=== PATIENT | male | born 1930 | race Caucasian/White ===

== ENCOUNTER 2017-12-04 19:42 | Inpatient (IN) | payer MEDICARE ==
[~2017-12-04] VITALS: Ht 190.5 cm; Wt 64.7 kg
[~2017-12-04 19:42] MED LIST: AC325T; DILT180C; LISI40TA; WRF2T
[2017-12-04] MEDS ORDERED: NS IV 1000 ML 1,000 ML IV SCH (20:01)
[2017-12-04] MEDS ORDERED: ACETAMINOPHEN 500 MG TAB (TYLENOL) PO PRN (20:15)
[2017-12-04] MEDS ORDERED: PIPERACILLIN/TAZOBACTAM 3.375 GM in NS (IVPB) 100 ML IV NR (20:15)
--- OUTSIDE RECORDS SUMMARY | 2017-12-04 20:29 | XMS REPORT ---
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 8321452132203 Problem Irregular heart rhythm I49.9 Active 237075677 Problem Congestive heart failure, unspecified congestive heart failure chronicity, unspecified congestive heart failure type I50.9 Active 86506522 Problem Atrial fibrillation, unspecified type I48.91 Active 15036218 ALLERGIES Substance Reaction Event Type Date Status Penicillins Unknown Non Drug Allergy Apr, Active ENCOUNTERS Encounter Location Date Diagnosis [place] [id number] [place] [address] September, Congestive heart failure, unspecified congestive heart failure chronicity, unspecified congestive heart failure type I50.9 ; Atrial fibrillation, unspecified type I48.91 and Dermatitis L30.9 [place] [address] [place] [address]39[address] May, Chronic kidney disease, unspecified CKD stage N18.9 [place] [id number], [place] [address] May, Chronic kidney disease, unspecified CKD stage N18.9 [place] [address] [place] [address] 00148- 5126 May, [place] [id number] [place] [address]- 7106 May, Congestive heart failure, unspecified congestive heart failure chronicity, unspecified congestive heart failure type I50.9 and 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 [facility] [address] [facility] [id number], [place] [address] Apr, [facility] [address] [id number], [place] [address] Apr, Irregular heart rhythm I49.9 ; Dyspnea on exertion R06.09 ; Atrial fibrillation, unspecified type I48.91 and Congestive heart failure, unspecified congestive heart failure chronicity, unspecified congestive heart failure type I50.9 [facility] [address] [id number], [place] [address] Apr, [facility] [address] [id number], [place] [address] Dec, [facility] [address], [place] [address] Aug, [facility] [address] [id number], [place] [address] Aug, [facility] [address], [place] [address] Jul, [facility] [address] [facility] [id number], [place] [address] Jul, [facility] [address], [place] [address] Jul, [facility] [address] [facility] [id number], [place] [address] Jul, [facility] [address] [facility] [id number], [place] [address] Jul, [facility] [address] [facility] [id number], [place] [address] 8[address] Oct, [facility] [address] [facility] [id number], [place] [address] Nov, [facility] [address] [facility] [id number], [place] [address] Nov, [facility] [address] [facility] [address] [id number], [place] [address] Nov, [facility] [address] [facility] [id number], [place] [address] Oct, IMMUNIZATIONS No Known Immunizations SOCIAL HISTORY Never Assessed REASON FOR VISIT shortness of breath for 2 weeks. worse with exertion. when hes resting...not so bad. [email or web address] PLAN OF CARE Activity Details Follow Up Hospice Reason: VITAL SIGNS Height 72 in 2017-05-16 Weight 152.4 lbs 2017-05-16 Temperature 97.1 degrees Fahrenheit 2017-05-16 Heart Rate 94 bpm 2017-05-16 Respiratory Rate 24 2017-05-16 BMI 20.67 kg/m2 2017-05-16 Blood pressure systolic 152 mmHg 2017-05-16 Blood pressure diastolic 90 mmHg 2017-05-16 MEDICATIONS Medication Instructions Dosage Frequency Start Date End Date Duration Status Blood Pressure Cuff Nov, Not-Taking Tylenol 325 mg take 1 Tablet by Oral route 1 per p Oct, Active Aspirin 325 MG Orally Once a day 1 tablet 24h Active Lisinopril-Hydrochlorothiazide 20-25 MG Orally Once a day 1 tablet 24h Jul, Not-Taking RESULTS Name Result Date Reference Range Xray : Chest (IN HOUSE) 2017-05-16 PROCEDURES Procedure Date Ordered Result Body Site EKG, TRACING (IN-HOUSE) 2017-05-16 Abnormal ELECTROCARDIOGRAM, TRACING May 16, 2017 [facility] VISIT ESTABLISHED PATIENT May 16, 2017 CHEST X-RAY May 16, 2017 INSTRUCTIONS MEDICATIONS ADMINISTERED No Known Medications MEDICAL (GENERAL) HISTORY Type Description Date Surgical History aortic valce replacement 2001 Surgical History bilateral knee replacements 2004, 2006 Hospitalization History post surgery 2001
--- OUTSIDE RECORDS SUMMARY | 2017-12-04 20:29 | XMS REPORT ---
Author Author MIGULEINA HOFFMAN Organization [facility] Address [address] [place] [address] Care Team Providers Care Milling General Superintendent Name Role Phone MIGUELINA HOFFMAN Unavailable PROBLEMS Type Condition ICD9-CM Code WPG13-PS Code Onset Dates Condition Status SNOMED Code Problem Chronic kidney disease, unspecified CKD stage N18.9 Active 254608652 Problem Coronary artery disease involving [place]well coronary artery of cantwell heart without angina pectoris I25.10 Active 4454022658471 Problem Irregular heart rhythm I49.9 Active 666595385 Problem Congestive heart failure, unspecified congestive heart failure chronicity, unspecified congestive heart failure type I50.9 Active 86940349 Problem Atrial fibrillation, unspecified type I48.91 Active 43449645 ALLERGIES No Information ENCOUNTERS Encounter Location Date Diagnosis [place] [id number] [place] [address] September, Congestive heart failure, unspecified congestive heart failure chronicity, unspecified congestive heart failure type I50.9 ; Atrial fibrillation, unspecified type I48.91 and Dermatitis L30.9 [place] [id number] [place] [address] 56116- 5996 May, Chronic kidney disease, unspecified CKD stage N18.9 [place] [id number] [place] [address]- 1549 May, Chronic kidney disease, unspecified CKD stage N18.9 [place] [id number] [place] [address]44- 6455 May, [place] [id number] [place] [address]15- 2025 May, Congestive heart failure, unspecified congestive heart failure chronicity, unspecified congestive heart failure type I50.9 and Coronary artery disease involving [place] coronary artery of cantwell heart without angina pectoris I25.10 [facility] [address] [address] Apr, [facility] [address] [address] Apr, Irregular heart rhythm I49.9 ; Dyspnea on exertion R06.09 ; Atrial fibrillation, unspecified type I48.91 and Congestive heart failure, unspecified congestive heart failure chronicity, unspecified congestive heart failure type I50.9 [facility] [address] [facility] [id number] [address] Apr, [facility] [id number] [place] [address] 87427- 9577 Dec, [facility] [id number] [address] 6[address] Aug, [facility] [id number] [address]- 0[address] Aug, [facility] [address] [address]- [address] Jul, [facility] [address] [address]- 0626 Jul, [facility] [address] [address]- 0126 Jul, [facility] [address] [address]- 6400 Jul, [facility] [id number] [address]- 1338 Jul, [facility] [address] [address] 4412 Oct, [facility] [address] [address]- 1464 Nov, [facility] [id number] [place] [address] 93508- 3173 Nov, [facility] [address] [facility] [id number] [place] [address]- 2546 Nov, [facility] [address] [facility] [id number] [place] [address]- 25[address] Oct, IMMUNIZATIONS No Known Immunizations SOCIAL HISTORY Never Assessed REASON FOR VISIT Lab (walk-in) PLAN OF CARE VITAL SIGNS MEDICATIONS No Known Medications RESULTS No Results PROCEDURES Procedure Date Ordered Result Body Site LAB NOT BILLED BY [facility] Jun 19, 2017 [place], ROUTINE* Jun 19, 2017 INSTRUCTIONS MEDICATIONS ADMINISTERED No Known Medications MEDICAL (GENERAL) HISTORY Type Description Date Surgical History aortic valce replacement 2001 Surgical History bilateral knee replacements 2004, 2005 Hospitalization History post surgery 2001
--- OUTSIDE RECORDS SUMMARY | 2017-12-04 20:29 | XMS REPORT ---
Author Author MIGUELINA HOFFMAN [facility] Address [address] [place] [address] Care Team Providers Care Reservoir Caretaker Name Role Phone MIGUELINA HOFFMAN Unavailable PROBLEMS Type Condition ICD9-CM Code [id number] Code Onset Dates Condition Status SNOMED Code Problem Chronic kidney disease, unspecified CKD stage N18.9 Active 162442129 Problem Coronary artery disease involving [place] coronary artery of [place] heart without angina pectoris I25.10 Active 6397883155164 Problem Irregular heart rhythm I49.9 Active 881738675 Problem Congestive heart failure, unspecified congestive heart failure chronicity, unspecified congestive heart failure type I50.9 Active 10429625 Problem Atrial fibrillation, unspecified type I48.91 Active 47117524 ALLERGIES Substance Reaction Event Type Date Status Penicillins Unknown Non Drug Allergy May, Active ENCOUNTERS Encounter Location Date Diagnosis [place] [id number] [place] [address]- [address]1 September, Congestive heart failure, unspecified congestive heart failure chronicity, unspecified congestive heart failure type I50.9 ; Atrial fibrillation, unspecified type I48.91 and Dermatitis L30.9 [place] [id number] [place] [address] 58958- [address]69 May, Chronic kidney disease, unspecified CKD stage N18.9 [facility] [id number] [place] [address] 38898- 9481 May, Chronic kidney disease, unspecified CKD stage N18.9 [facility] [address] [place] [address] 37262- 5007 May, [facility] [id number] [place] [address] 68646- 3346 May, Congestive heart failure, unspecified congestive heart failure chronicity, unspecified congestive heart failure type I50.9 and Coronary artery disease involving [place] coronary artery of emmon[place] heart without angina pectoris I25.10 [facility] [address] [facility] [id number] [address] Apr, [facility] [address] [facility] [id number], [place] [address] Apr, Irregular heart rhythm I49.9 ; Dyspnea on exertion R06.09 ; Atrial fibrillation, unspecified type I48.91 and Congestive heart failure, unspecified congestive heart failure chronicity, unspecified congestive heart failure type I50.9 [facility] [address] [id number], [place] [address]- [address]41 Apr, [facility] [address] [facility] [id number], [place] [address]- 1460 Dec, [facility] [address], [place] [address]- 7949 Aug, [facility] [address], [place] [address]- 9797 Aug, [facility] [address], [place] [address]- 9097 Jul, [facility] [address], [place] [address]- 3787 Jul, [facility] [address], [place] [address]- 5460 Jul, [facility] [address], [place] [address]- 3663 Jul, [facility] [address], [place] [address]- 6409 Jul, [facility] [address], [place] [address]- 9415 Oct, [facility] [address], [place] [address]- 4812 Nov, [facility] [address] [facility] [id number] [place] [address]- 0771 Nov, [facility] [address] [facility] [id number] [place] [address]- 0318 Nov, [facility] [address] [facility] [id number] [place] [address]- 8790 Oct, IMMUNIZATIONS No Known Immunizations SOCIAL HISTORY Never Assessed REASON FOR VISIT Walk in care f/u, PT was seen for trouble breathing and he says he was much better-Dawson LECHUGA PLAN OF CARE Activity Details Follow Up 6 Weeks Reason: VITAL SIGNS Height 72 in 2017-05-28 Weight 148.6 lbs 2017-05-28 Temperature 98.1 degrees Fahrenheit 2017-05-28 Heart Rate 72 bpm 2017-05-28 Respiratory Rate 20 2017-05-28 BMI 20.15 kg/m2 2017-05-28 Blood pressure systolic 144 mmHg 2017-05-28 Blood pressure diastolic 86 mmHg 2017-05-28 MEDICATIONS Medication Instructions Dosage Frequency Start Date End Date Duration Status Tylenol 325 mg take 1 Tablet by Oral route 1 per p Oct, Active Aspirin 325 MG Orally Once a day 1 tablet 24h Active Blood Pressure Cuff Nov, Not-Taking Lisinopril-Hydrochlorothiazide 20-25 MG Orally Once a day 1 tablet 24h Jul, Not-Taking Lasix 40 mg Orally Once a day 1 tablet 24h Apr, 30 days Active RESULTS No Results PROCEDURES Procedure Date Ordered Result Body Site LAB NOT BILLED BY [facility] May 28, 2017 [facility] VISIT ESTABLISHED PATIENT May 28, 2017 PEDRITO WILKERSON* May 28, 2017 INSTRUCTIONS MEDICATIONS ADMINISTERED No Known Medications MEDICAL (GENERAL) HISTORY Type Description Date Surgical History aortic valce replacement 2001 Surgical History bilateral knee replacements 2004, 2006 Hospitalization History post surgery 2001
--- OUTSIDE RECORDS SUMMARY | 2017-12-04 20:29 | XMS REPORT ---
Author Author MIGUELINA HOFFMAN Organization [facility] Address [address] [place] [address] Care Team Providers Care Jointer Submarine Cable Name Role Phone MIGUELINA HOFFMAN Unavailable PROBLEMS Type Condition ICD9-CM Code BIB34-TB Code Onset Dates Condition Status SNOMED Code Problem Chronic kidney disease, unspecified CKD stage N18.9 Active 517366106 Problem Coronary artery disease involving [place] coronary artery of [place] heart without angina pectoris I25.10 Active 4733660028203 Problem Irregular heart rhythm I49.9 Active 455322714 Problem Congestive heart failure, unspecified congestive heart failure chronicity, unspecified congestive heart failure type I50.9 Active 47276349 Problem Atrial fibrillation, unspecified type I48.91 Active 92360383 ALLERGIES No Information ENCOUNTERS Encounter Location Date Diagnosis [place] [id number] [place] [address]28- 8852 September, Congestive heart failure, unspecified congestive heart failure chronicity, unspecified congestive heart failure type I50.9 ; Atrial fibrillation, unspecified type I48.91 and Dermatitis L30.9 [place] [id number] [place] [address] 59166- 8297 May, Chronic kidney disease, unspecified CKD stage N18.9 [place] [id number] [place] [address] 26936- 8413 May, Chronic kidney disease, unspecified CKD stage N18.9 [place] [id number] [place] [address] 77123- 5402 May, [place] [id number] [place] [address] 40113- 0129 May, Congestive heart failure, unspecified congestive heart failure chronicity, unspecified congestive heart failure type I50.9 and Coronary artery disease involving [place] coronary artery of [place] heart without angina pectoris I25.10 [facility] [address] [address] Apr, [facility] [address] [address] Apr, Irregular heart rhythm I49.9 ; Dyspnea on exertion R06.09 ; Atrial fibrillation, unspecified type I48.91 and Congestive heart failure, unspecified congestive heart failure chronicity, unspecified congestive heart failure type I50.9 [facility] [address] [facility] [id number] [place] [address]- 8817 Apr, [facility] [id number] [place] [address] 48496- 1695 Dec, [facility] [address] [id number] [address]- 0702 Aug, [facility] [address] [id number] [address]- 7636 Aug, [facility] [address] [address]- 7677 Jul, [facility] [address] [address]- 4858 Jul, [facility] [address] [address] Jul, [facility] [address] [address]- 1598 Jul, [facility] [id number] [address]- 0538 Jul, [facility] [address] [address]- 2285 Oct, [facility] [address] [address]- 6126 Nov, [facility] [id number] [place] [address] 13485- 9454 Nov, [facility] [address] [facility] [id number] [place] [address]- 2546 Nov, [facility] [address] [facility] [id number] [place] [address]- 4846 Oct, IMMUNIZATIONS No Known Immunizations SOCIAL HISTORY Never Assessed REASON FOR VISIT PLAN OF CARE VITAL SIGNS MEDICATIONS No Known Medications RESULTS No Results PROCEDURES No Known procedures INSTRUCTIONS MEDICATIONS ADMINISTERED No Known Medications MEDICAL (GENERAL) HISTORY Type Description Date Surgical History aortic valce replacement 2001 Surgical History bilateral knee replacements 2004, 2005 Hospitalization History post surgery 2001
--- OUTSIDE RECORDS SUMMARY | 2017-12-04 20:29 | XMS REPORT ---
Author Author ADOLPH MAJANO [facility] Address [address] [place] [address] Care Team Providers Care Nursery Rn Name Role Phone ADOLPH MAJANO Unavailable PROBLEMS Type Condition ICD9-CM Code QRD07-DZ Code Onset Dates Condition Status SNOMED Code Problem Chronic kidney disease, unspecified CKD stage N18.9 Active 063642244 Problem 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 Active 7838316488704 Problem Irregular heart rhythm I49.9 Active 726849964 Problem Congestive heart failure, unspecified congestive heart failure chronicity, unspecified congestive heart failure type I50.9 Active 96061226 Problem Atrial fibrillation, unspecified type I48.91 Active 40085043 ALLERGIES No Information ENCOUNTERS Encounter Location Date Diagnosis [place] [id number] [place] [address] September, Congestive heart failure, unspecified congestive heart failure chronicity, unspecified congestive heart failure type I50.9 ; Atrial fibrillation, unspecified type I48.91 and Dermatitis L30.9 [place] [address] [place] [address] May, Chronic kidney disease, unspecified CKD stage N18.9 [place] [address] [place] [address]- 3937 May, Chronic kidney disease, unspecified CKD stage N18.9 [place] [id number] [place] [address]- [address] May, [place] [id number] [place] [address] 8859 May, Congestive heart failure, unspecified congestive heart failure chronicity, unspecified congestive heart failure type I50.9 and 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 [facility] [id number] [address] Apr, [facility] [address] [facility] [id number] [address] Apr, Irregular heart rhythm I49.9 ; Dyspnea on exertion R06.09 ; Atrial fibrillation, unspecified type I48.91 and Congestive heart failure, unspecified congestive heart failure chronicity, unspecified congestive heart failure type I50.9 [facility] [address] [facility] [id number], [place] [address] Apr, [facility] [address], [place] [address] Dec, [facility] [address], [place] [address] Aug, [facility] [address], [place] [address] Aug, [facility] [address] [address] Jul, [facility] [address], [place] [address] Jul, [facility] [address], [place] [address] Jul, [facility] [address], [place] [address] Jul, [facility] [id number], [place] [address] Jul, [facility] [address], [place] [address] Oct, [facility] [id number] [address] Nov, [facility] [address] [address] Nov, [facility] [address] [facility] [id number] [place] [address] Nov, [facility] [address] [facility] [id number] Oct, IMMUNIZATIONS No Known Immunizations SOCIAL HISTORY Never Assessed REASON FOR VISIT triage - CBowmanRN PLAN OF CARE VITAL SIGNS MEDICATIONS No Known Medications RESULTS No Results PROCEDURES No Known procedures INSTRUCTIONS MEDICATIONS ADMINISTERED No Known Medications MEDICAL (GENERAL) HISTORY Type Description Date Surgical History aortic valce replacement 2001 Surgical History bilateral knee replacements 2004, 2005 Hospitalization History post surgery 2001
--- OUTSIDE RECORDS SUMMARY | 2017-12-04 20:29 | XMS REPORT ---
Author Author MIGUELINA HOFFMAN Organization [facility] Address [address] [place] [address] Care Team Providers Care Attendant [employer] Name Role Phone MIGUELINA HOFFMAN Unavailable PROBLEMS Type Condition ICD9-CM Code JHI05-ZW Code Onset Dates Condition Status SNOMED Code Problem Chronic kidney disease, unspecified CKD stage N18.9 Active 182737532 Problem Coronary artery disease involving [place] coronary artery of [place] heart without angina pectoris I25.10 Active 5607984632561 Problem Irregular heart rhythm I49.9 Active 148821501 Problem Congestive heart failure, unspecified congestive heart failure chronicity, unspecified congestive heart failure type I50.9 Active 91253853 Problem Atrial fibrillation, unspecified type I48.91 Active 03992263 ALLERGIES No Information ENCOUNTERS Encounter Location Date Diagnosis [place] [id number] [place] [address] September, Congestive heart failure, unspecified congestive heart failure chronicity, unspecified congestive heart failure type I50.9 ; Atrial fibrillation, unspecified type I48.91 and Dermatitis L30.9 [place] [id number] [place] [address]- 8[address] May, Chronic kidney disease, unspecified CKD stage N18.9 [place] [id number] [place] [address]- 9669 May, Chronic kidney disease, unspecified CKD stage N18.9 [place] [id number] [place] [address] 93077- 9480 May, [place] [id number] [place] [address] 90944- 2452 May, Congestive heart failure, unspecified congestive heart failure chronicity, unspecified congestive heart failure type I50.9 and Coronary artery disease involving [place] coronary artery of [place] heart without angina pectoris I25.10 [facility] [address], [place] [address] Apr, [facility] [address], [place] [address] Apr, Irregular heart rhythm I49.9 ; Dyspnea on exertion R06.09 ; Atrial fibrillation, unspecified type I48.91 and Congestive heart failure, unspecified congestive heart failure chronicity, unspecified congestive heart failure type I50.9 [facility] [address] [facility] [id number], [place] [address] Apr, [facility] [address] [place] [address] 95936- 4664 Dec, [facility] [id number], [place] [address] Aug, [facility] [id number], [place] [address] Aug, [facility] [address], [place] [address] Jul, [facility] [address], [place] [address] 22[address] Jul, [facility] [address], [place] [address] 00[address] Jul, [facility] [address], [place] [address] Jul, [facility] [id number], [place] [address] Jul, [facility] [address], [place] [address] Oct, [facility] [address], [place] [address] 98[address] Nov, [facility] [address] [place] [address] 59615- 0662 Nov, [facility] [address] [facility] [id number] [place] [address] Nov, [facility] [address] [facility] [id number] [place] [address] 5166 Oct, IMMUNIZATIONS No Known Immunizations SOCIAL HISTORY Never Assessed REASON FOR VISIT hospice PLAN OF CARE VITAL SIGNS MEDICATIONS No Known Medications RESULTS No Results PROCEDURES No Known procedures INSTRUCTIONS MEDICATIONS ADMINISTERED No Known Medications MEDICAL (GENERAL) HISTORY Type Description Date Surgical History aortic valce replacement 2001 Surgical History bilateral knee replacements 2004, 2005 Hospitalization History post surgery 2001
--- OUTSIDE RECORDS SUMMARY | 2017-12-04 20:30 | XMS REPORT ---
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 Active 7676037482121 Problem Irregular heart rhythm I49.9 Active 552967472 Problem Congestive heart failure, unspecified congestive heart failure chronicity, unspecified congestive heart failure type I50.9 Active 02996466 Problem Atrial fibrillation, unspecified type I48.91 Active 02736329 ALLERGIES No Information ENCOUNTERS Encounter Location Date Diagnosis [place] [id number] [place] [address]1555- [address] September, Congestive heart failure, unspecified congestive heart failure chronicity, unspecified congestive heart failure type I50.9 ; Atrial fibrillation, unspecified type I48.91 and Dermatitis L30.9 [place] [id number] [place] [address] 89833- 7999 May, Chronic kidney disease, unspecified CKD stage N18.9 [place] [id number] [place] [address] 86932- 7376 May, Chronic kidney disease, unspecified CKD stage N18.9 [place] [id number] [place] [address] 84242- 2883 May, [place] [id number] [place] [address] 79930- 6649 May, Congestive heart failure, unspecified congestive heart failure chronicity, unspecified congestive heart failure type I50.9 and 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 [facility] [address] [address] Apr, [facility] [address] [address] Apr, Irregular heart rhythm I49.9 ; Dyspnea on exertion R06.09 ; Atrial fibrillation, unspecified type I48.91 and Congestive heart failure, unspecified congestive heart failure chronicity, unspecified congestive heart failure type I50.9 [facility] [address] [facility] [id number] [address]698 Apr, [facility] [address] [place] [address] 92376- 0954 Dec, [facility] [id number] [address] Aug, [facility] [id number] [address] Aug, [facility] [address] [address]- 70[address] Jul, [facility] [address] [address] 8821 Jul, [facility] [address] [address]- 0024 Jul, [facility] [address] [address]- 1357 Jul, [facility] [id number] [address]- 1700 Jul, [facility] [address] [address]- 1525 Oct, [facility] [address] [address]- 4472 Nov, [facility] [address] [place] [address]39- 9610 Nov, [facility] [address] [facility] [id number] [place] [address]- 2546 Nov, [facility] [address] [facility] [id number] [place] [address]- 2546 Oct, IMMUNIZATIONS No Known Immunizations SOCIAL HISTORY Never Assessed REASON FOR VISIT Hospice PLAN OF CARE VITAL SIGNS MEDICATIONS Medication Instructions Dosage Frequency Start Date End Date Duration Status Lasix 40 mg Orally Once a day 1 tablet 24h Apr, 15 days Active RESULTS No Results PROCEDURES No Known procedures INSTRUCTIONS MEDICATIONS ADMINISTERED No Known Medications MEDICAL (GENERAL) HISTORY Type Description Date Surgical History aortic valce replacement 2001 Surgical History bilateral knee replacements 2004, 2005 Hospitalization History post surgery 2001
--- OUTSIDE RECORDS SUMMARY | 2017-12-04 20:30 | XMS REPORT ---
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
--- OUTSIDE RECORDS SUMMARY | 2017-12-04 20:30 | XMS REPORT | Continuity of Care Document ---
Author Author [facility] Address Unknown Phone Unavailable Allergies Active Description Code Type Severity Reaction Onset Reported/Identified Relationship to Patient Clinical Status Yes Penicillins Drug Allergy N/A N/A 11/13/2011 Medications There is no data. Problems Date Dx Coded Attending Type Code Diagnosis Diagnosed By 11/13/2011 401.0 MALIGNANT ESSENTIAL HYPERTENSION 11/13/2011 V70.0 ROUTINE GENERAL MEDICAL EXAMINATION AT A HEALTH CARE FACILITY 11/13/2011 MIGUELINA HOFFMAN MD 401.0 MALIGNANT ESSENTIAL HYPERTENSION 11/13/2011 MIGUELINA HOFFMAN MD V70.0 ROUTINE GENERAL MEDICAL EXAMINATION AT A HEALTH CARE FACILITY 12/02/2011 272.1 HYPERTRIGLYCERIDEMIA 12/02/2011 MIGUELINA HOFFMAN MD 272.1 HYPERTRIGLYCERIDEMIA 08/10/2014 MIGUELINA HOFFMAN MD 396.9 MITRAL AND AORTIC VALVE DISEASES UNSPECIFIED 08/10/2014 MIGUELINA HOFFMAN MD 401.1 BENIGN ESSENTIAL HYPERTENSION 08/10/2014 MIGUELINA HOFFMAN MD 786.09 RESPIRATORY ABNORMALITY OTHER Procedures Code Description [place] [address] ROUTINE VENIPUNCTURE 08/10/2014 35490 CBC 08/10/2014 [id number] GFR CALC (RESULT ONLY) 08/10/2014 80787 CMP 08/10/2014 21515 BNP 08/11/2014 19123 OXIMETRY 08/15/2014 Results Test Result Range [facility] - 05/28/17 13:58 GLUCOSE 147 mg/dL 65-99 UREA NITROGEN (BUN) 44 mg/dL 7-25 CREATININE 1.12 mg/dL 0.70-1.11 eGFR NON-AFR. [place] 60 mL/min/1.73m2 > OR=60 eGFR 69 mL/min/1.73m2 > OR=60 BUN/CREATININE RATIO 39 (calc) 6-22 SODIUM 141 mmol/L 135-146 POTASSIUM 4.4 mmol/L 3.5-5.3 CHLORIDE 99 mmol/L 98-110 CARBON DIOXIDE 30 mmol/L 20-31 CALCIUM 10.0 mg/dL 8.6-10.3 PROTEIN, TOTAL 7.7 g/dL 6.1-8.1 ALBUMIN 4.1 g/dL 3.6-5.1 GLOBULIN 3.6 g/dL (calc) 1.9-3.7 ALBUMIN/GLOBULIN RATIO 1.1 (calc) 1.0-2.5 BILIRUBIN, TOTAL 0.7 mg/dL 0.2-1.2 ALKALINE PHOSPHATASE 141 U/L 40-115 AST 31 U/L 10-35 ALT 17 U/L 9-46 BMP - 06/19/17 10:55 GLUCOSE 155 mg/dL 65-99 UREA NITROGEN (BUN) 39 mg/dL 7-25 CREATININE 1.14 mg/dL 0.70-1.11 eGFR NON-AFR. [place] 58 mL/min/1.73m2 > OR=60 eGFR 68 mL/min/1.73m2 > OR=60 BUN/CREATININE RATIO 34 (calc) 6-22 SODIUM 140 mmol/L 135-146 POTASSIUM 4.8 mmol/L 3.5-5.3 CHLORIDE 102 mmol/L 98-110 CARBON DIOXIDE 28 mmol/L 20-31 CALCIUM 10.0 mg/dL 8.6-10.3 Encounters ACCT No. Visit Date/Time Discharge Status Pt. Type Provider Facility Loc./Unit Complaint [id number] 08/10/2014 14:44:00 08/10/2014 23:59:59 CLS Outpatient MIGUELINA HOFFMAN MD [id number] 11/30/2011 08:08:00 Document Registration [id number] 12/04/2017 19:00:00 ACT [facility] [id number] 06/19/2017 10:40:00 Document Registration [id number] 05/28/2017 13:20:00 Document Registration
[2017-12-04] MEDS ORDERED: VANCOMYCIN INJECTION 1,250 MG in NS (IVPB) 250 ML IV SCH (21:00)
[2017-12-04 21:02] LABS: BASOPHILS % (AUTO) 0 % (0-10); EOSINOPHILS % (AUTO) 0 % (0-10); HEMATOCRIT 31 % (40-54); HEMOGLOBIN 9.8 G/DL (13.3-17.7); LYMPHOCYTES # (AUTO) 0.9 X 10^3 (1.0-4.0); LYMPHOCYTES % (AUTO) 8 % (12-44); MEAN CORPUSCULAR HEMOGLOBIN 25 PG (25-34); MEAN CORPUSCULAR HGB CONC 32 G/DL (32-36); MEAN CORPUSCULAR VOLUME 78 FL (80-99); MEAN PLATELET VOLUME 10.2 FL (7.4-10.4); MONOCYTES # (AUTO) 0.8 X 10^3 (0.0-1.0); MONOCYTES % (AUTO) 7 % (0-12); NEUTROPHILS # (AUTO) 9.2 X 10^3 (1.8-7.8); NEUTROPHILS % (AUTO) 84 % (42-75); PLATELET COUNT 528 10^3/uL (130-400); RED BLOOD COUNT 3.94 10^6/uL (4.35-5.85); RED CELL DISTRIBUTION WIDTH 19.6 % (10.0-14.5); WHITE BLOOD COUNT 10.9 10^3/uL (4.3-11.0)
[2017-12-04] MEDS ORDERED: ASPI-808 PO (21:06)
[2017-12-04 21:22] LABS: ALANINE AMINOTRANSFERASE 34 U/L (0-55); ALKALINE PHOSPHATASE 278 U/L (40-136); BILIRUBIN,TOTAL 0.6 MG/DL (0.1-1.0); BUN/CREATININE RATIO 32; CALCIUM 10.6 MG/DL (8.5-10.1); CARBON DIOXIDE 22 MMOL/L (21-32); CHLORIDE 105 MMOL/L (98-107); CREATININE SERUM 1.09 MG/DL (0.60-1.30); GFR ESTIMATED > 60; GLUCOSE 131 MG/DL (70-105); SODIUM 139 MMOL/L (135-145); TOTAL PROTEIN 8.8 GM/DL (6.4-8.2)
--- NOTE | 2017-12-04 21:26 | Diagnostic Imaging Report ---
Clinical indication: Patient with right foot injury. Probed to bone. Exam: X-ray of the right foot, 3 views. Comparison: None. Findings: There is diffuse osteopenia which limits evaluation of fine bony detail. There is a soft tissue defect involving the plantar aspect of the foot near the MTP level. There are hypertrophic spurs involving the mid foot and also seen posteriorly which limits evaluation for subtle fracture. There is no radiodense foreign object seen. There is a curvilinear area overlying the region of the first MTP joint and a fracture fragment cannot be completely excluded. There is hypertrophic calcaneal spur at the plantar attachment. Vascular calcifications are seen. Impression: 1: There is a curvilinear area of increased density seen overlying the first MTP joint region which is in the general area of the soft tissue defect involving the medial plantar aspect of the foot. A fracture in this region cannot be completely excluded. CT scan of the right foot would better evaluate. 2: There is no other concern for acute fracture or dislocation. There is no radiodense foreign object seen. 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 Dictated by: Dictated on workstation # [id number]
[2017-12-04 21:41] LABS: TSH (THYROID ANALYZER) 3.37 UIU/ML (0.35-4.94)
[2017-12-05] MEDS ORDERED: NS IV 1000 ML 1,000 ML ONE (00:01)
[2017-12-05 00:26] VITALS: BP 159/76
[2017-12-05] MEDS: PIPERACILLIN/TAZO 3.375 GM/D5W 100 ML IV SCH ×6 (03:42→18:18)
[2017-12-05 03:43] LABS: BILIRUBIN,URINE NEGATIVE (NEGATIVE); CLARITY,URINE VERY CLOUDY; COLOR,URINE RED; GLUCOSE, URINE (UA) NEGATIVE (NEGATIVE); KETONES,URINE NEGATIVE (NEGATIVE); LEUKOCYTE ESTERASE ,URINE 3+ (NEGATIVE); NITRITE,URINE NEGATIVE (NEGATIVE); PH,URINE 6.5 (5-9); PROTEIN,URINE 3+ (NEGATIVE); UROBILINOGEN,URINE NORMAL (NORMAL)
[2017-12-05 03:52] LABS: BACTERIA,URINE TRACE /HPF; RBC,URINE >100 /HPF; SQUAMOUS EPITHELIAL CELL,UR RARE /HPF
[2017-12-05 04:36] VITALS: BP 150/82
[2017-12-05 05:47] LABS: BASOPHILS % (AUTO) 1 % (0-10); EOSINOPHILS # (AUTO) 0.1 10^3/uL (0.0-0.3); EOSINOPHILS % (AUTO) 1 % (0-10); HEMATOCRIT 27 % (40-54); HEMOGLOBIN 8.2 G/DL (13.3-17.7); LYMPHOCYTES # (AUTO) 0.9 X 10^3 (1.0-4.0); LYMPHOCYTES % (AUTO) 11 % (12-44); MEAN CORPUSCULAR HGB CONC 30 G/DL (32-36); MEAN CORPUSCULAR VOLUME 78 FL (80-99); MONOCYTES # (AUTO) 0.5 X 10^3 (0.0-1.0); MONOCYTES % (AUTO) 7 % (0-12); NEUTROPHILS # (AUTO) 6.5 X 10^3 (1.8-7.8); NEUTROPHILS % (AUTO) 81 % (42-75); PLATELET COUNT 476 10^3/uL (130-400); RED BLOOD COUNT 3.49 10^6/uL (4.35-5.85); RED CELL DISTRIBUTION WIDTH 19.7 % (10.0-14.5)
[2017-12-05 05:49] LABS: MEAN CORPUSCULAR HEMOGLOBIN 23 PG (25-34)
[2017-12-05 05:59] LABS: INR 1.5 (0.8-1.4)
[2017-12-05 06:12] LABS: ALANINE AMINOTRANSFERASE 25 U/L (0-55); ALBUMIN 3.2 GM/DL (3.2-4.5); ALKALINE PHOSPHATASE 219 U/L (40-136); BILIRUBIN,TOTAL 0.6 MG/DL (0.1-1.0); BUN/CREATININE RATIO 35; CALCIUM 9.5 MG/DL (8.5-10.1); CARBON DIOXIDE 20 MMOL/L (21-32); CHLORIDE 112 MMOL/L (98-107); CREATININE SERUM 0.84 MG/DL (0.60-1.30); GFR ESTIMATED > 60; GLUCOSE 98 MG/DL (70-105); POTASSIUM 4.5 MMOL/L (3.6-5.0); SODIUM 141 MMOL/L (135-145); TOTAL PROTEIN 6.9 GM/DL (6.4-8.2)
[2017-12-05 07:54] VITALS: BP 140/83
[2017-12-05] MEDS ORDERED: ACET325T49 PO (09:13)
--- NOTE | 2017-12-05 11:14 | Physical Therapy Evaluation ---
PT Evaluation-General Medical Diagnosis Admission Date Dec 04, 2017 at 20:18 Medical Diagnosis: right foot ulcer Onset Date: Dec 04, 2017 Therapy Diagnosis Therapy Diagnosis: debility/weakness Height/Weight Height (Feet): 6 Height (Inches): 3.00 Weight (Pounds): 142 Weight (Ounces): 11.2 Precautions Precautions/Isolations: Fall Prevention, Standard Precautions Weight Bear Status Right Lower Extremity: Right Weight Bearing/Tolerated Left Lower Extremity: Left Weight Bearing/Tolerated Referral Physician: Kiley Reason for Referral: Evaluation/Treatment Medical History Current History falls at home/per patient unremarkable history Reviewed History: Yes Social History Home: Single Level Current Living Status: Alone Entry Into Home: Ramp ambulates short distances only per patient report and "furniture walks" at home Prior/Core FIM Prior Level of Function Functional [place]acken Measure 0=Not Assessed/NA 4=Minimal Assistance 1=Total Assistance 5=Supervision or Setup 2=Maximal Assistance 6=Modified Bracken 3=Moderate Assistance 7=Complete [place]ack[place] Bed Mobility: 6 Transfers (B,C,W/C) (FIM): 6 Gait: 6 ambulates 20-25' "furniture walks" at home PT Evaluation-Current Subjective Patient agrees to PT. Pain Numeric Pain Scale: 0-No Pain Location: No Pain Reported Objective Patient Orientation: Normal For Age Problem Solving: Fair ROM/Strength ROM Lower Extremities bilateral LE WNL Strength Lower Extremities 4-/5 grossly bilateral LE Integumentary/Posture Integumentary noted right medial wound foot with foul smell Bowel Incontinence: No Bladder Incontinence: No Posture severe kyphosis Neuromuscular (Tone, Coordination, Reflexes) diminished coordination due to inactivity PLOF Sensory Vision: Functional Hearing: Functional Sensation Right Lower Extremit: Impaired Sensation Left Lower Extremity: Impaired Transfers Functional Bracken Measure 0=Not Assessed/NA 4=Minimal Assistance 1=Total Assistance 5=Supervision or Setup 2=Maximal Assistance 6=Modified [place] 3=Moderate Assistance 7=Complete [place] Transfers (B, C, W/C) (FIM): 5 Scootin Rollin Supine to/from Sit: 5 Sit to/from Stand: 5 Gait Mode of Locomotion: Walk Anticipated Mode of Locomotion: Walk Gait (FIM): 1 Distance (FIM): 1=up to 49 ft Distance: 20' x 2 Gait Level of Assist: 4 Gait Persons Needed: 1 Gait Assistive Device: FWW Comments/Gait Description CGA for safety with FWW use Balance Sitting Static: Fair Sitting Dynamic: Fair Standing Static: Fair Standing Dynamic: Fair Assessment/Needs 87 y.o. male, will benefit from skilled PT to address functional strength and mobility to improve current LOF and to safely return to home or care facility at maximum LOF. From a PT standpoint, patient may benefit from extended care facility to ensure safety and proper healing of right foot wound. Rehab Potential: Fair PT [employer] Account Executive Goals PT Usp Goals Time Frame: Dec 13, 2017 Transfers (B,C,W/C) (FIM): 6 Gait (FIM): 1 Gait distance (FIM): 1=up to 49 ft Distance: 25' Gait Level of Assist: 5 Gait Assistive Device: FWW PT Plan Problem List Problem List: Activity Tolerance, Functional Strength, Safety, Balance, Gait, Transfer, Bed Mobility Treatment/Plan Treatment Plan: Continue Plan of Care Treatment Plan: Bed Mobility, Education, Functional Activity Sandra, Functional Strength, Gait, Safety, Therapeutic Exercise, Transfers Treatment Duration: Dec 13, 2017 Frequency: 6 times per week Estimated Hrs Per Day: .25 hour per day Patient and/or Family Agrees t: Yes Discharge Recommendations Therapy D/C Recommendations: [facility] Placement, Penitentiary (TCU/[facility]) Time/GCodes Time In: 1050 Time Out: 1105 Total Billed Treatment Time: 15 Total Billed Treatment 1 visit EVMod 15 min G Codes Necessary: JOSE LUIS Pina PT Dec 05, 2017 11:14
--- NOTE | 2017-12-05 11:43 | History & Physicial (CHS) ---
XIN RAYGOZA MED STUDENT 12/05/17 11:43am: HPI History of Present Illness: Patient is an 87 year old male who was a direct admit from the urgent care for an ulcer on his right foot. He states that he has had the wound for about a month and it has become increasingly painful and finds it difficult to walk on it. He has been soaking the wound in [place] salt baths to try to help with no improvement. He lives at home by himself and has a caregiver and his caregiver was clipping his toe nails and saw the severity of the ulcer and made him seek medical attention for the ulcer. He denies fever and chills and denies any chronic medical issues. He states his only issue was that he had a porcine aortic valve replacement several years ago. Source: patient Exam Limitations: no limitations Date seen by provider: Dec 05, 2017 Time Seen by Provider: 10:00 Attending Physician Freddy Vargas MD PCP Miguelina Hoffman MD Consult Date of Admission Dec 04, 2017 at 20:18 Home Medications Home Medications Reviewed patient Home Medication Reconciliation performed by pharmacy medication reconciliations radiocommunications technician and/or nursing. Patients Allergies have been reviewed. Allergies Coded Allergies: Penicillins (Unverified Allergy, Mild, 04/07/09) TAL-Kqeone-Phveyb Hx Patient Social History Marrital Status: Alcohol Use: Denies Use Recreational Drug Use: No Smoking Status: Never a Smoker Recent Foreign Travel: No Contact w/other who traveled: No Recent Hopitalizations: No Recent Infectious Disease Expo: No Physical Abuse Screen: No Sexual Abuse: No Family Medical History Family History: Dysphasia FH: cancer 19 MOTHER FH: stomach cancer G8 SISTER FH: stroke G8 BROTHER Myocardial infarction 19 FATHER Review of Systems (CHC) Constitutional: No chills, No diaphoresis, No dizziness, No fever, No malaise, No weakness EENTM: No blurred vision, No double vision Respiratory: No cough, No dyspnea on exertion, No short of breath Cardiovascular: No chest pain, No edema, No palpitations Gastrointestinal: No abdominal pain, No constipation, No diarrhea, No nausea, No vomiting Genitourinary: No decreased output, No dysuria, No frequency, No hematuria, No hesitancy Musculoskeletal: other (Right foot pain) Skin: lesions (Ulcer on medial aspect of right foot) Psychiatric/Neurological: No Symptoms Reported; Denies Headache, Denies Numbness, Denies Tingling, Denies Weakness Physical Exam-([facility]) Physical Exam Vital Signs VS - Last 72 Hours, by Label 12/04/17 12/04/17 12/04/17 12/05/17 21:00 21:24 23:50 00:26 Temp 98.2 Pulse 80 84 Resp 20 B/P (MAP) 159/76 (103) Pulse Ox 98 O2 Delivery Room Air Nasal Cannula Nasal Cannula O2 Flow Rate 2.00 2.00 12/05/17 12/05/17 12/05/17 12/05/17 01:00 04:36 07:00 07:54 Temp 98.5 97.0 Pulse 75 79 114 79 Resp 16 18 B/P (MAP) 150/82 (104) 140/83 (102) Pulse Ox 99 95 O2 Delivery Nasal Cannula Nasal Cannula O2 Flow Rate 2.00 2.00 Capillary Refill : General Appearance: no apparent distress, thin HEENT: PERRL/EOMI, pharynx normal Neck: non-tender, full range of motion, normal inspection Respiratory: chest non-tender, lungs clear, normal breath sounds, no respiratory distress, no accessory muscle use Cardiovascular: regular rate, rhythm, no edema, no gallop, no JVD, no murmur Gastrointestinal: normal bowel sounds, non tender, soft, no organomegaly, no pulsatile mass Extremities: non-tender, normal inspection, no pedal edema, no calf tenderness Neurologic/Psychiatric: no motor/sensory deficits, alert, normal mood/affect, oriented x 3 Skin: normal color, warm/dry, other (ulcer located on right medial foot) Lymphatic: no adenopathy Assessment/Plan Assessment/Plan Admission Status: Inpatient Order (span 2 midnights) Reason for Inpatient Admission: Right foot ulcer. Needs IV abx Assessment & Plan Right Foot Ulcer - X Ray - MRI to look to see if the infection involves bone - If it involves bone will consider pic line to receive IV abx from a skilled facility or home health - IV Pip/tazo and IV Vancomycin - Dr. Solares will see patient and get a deep culture of the wound - Next steps will be determined after patient is seen by Dr. Solares. Clinical Quality Measures DVT/VTE Risk/Contraindication: Risk Factor Score Per Nursin RFS Level Per Nursing on Admit: 3=High Copy Copies To 1: MIGUELINA HOFFMAN MD,FREDDY Berg MD 12/05/17 5:17pm: HPI History of Present Illness: Reviewed History with patient and agree with student's documentation Home Medications Allergies Coded Allergies: Penicillins (Unverified Allergy, Mild, 04/07/09) CNA-Nebybz-Jqnbwy Hx Patient Social History Living Status: Lives home alone with dog Past Medical History Valve Replacement Family Medical History Family History: Dysphasia FH: cancer 19 MOTHER FH: stomach cancer G8 SISTER FH: stroke G8 BROTHER Myocardial infarction 19 FATHER Review of Systems (CHC) Respiratory: no symptoms reported Cardiovascular: no symptoms reported Gastrointestinal: no symptoms reported Musculoskeletal: other (Right foot pain) Skin: lesions (Ulcer on medial aspect of right foot) Psychiatric/Neurological: No Symptoms Reported Reviewed Test Results Reviewed Test Results Lab Laboratory Tests Test 12/04/17 20:40 12/04/17 20:50 12/05/17 02:30 12/05/17 05:36 Range/Units White Blood Count 10.9 8.0 4.3-11.0 10^3/uL Red Blood Count 3.94 L 3.49 L 4.35-5.85 10^6/uL Hemoglobin 9.8 L 8.2 L 13.3-17.7 G/DL Hematocrit 31 L 27 L 40-54 % Mean Corpuscular Volume 78 L 78 L 80-99 FL Mean Corpuscular Hemoglobin 25 23 L 25-34 PG Mean Corpuscular Hemoglobin Concent 32 30 L 32-36 G/DL Red Cell Distribution Width 19.6 H 19.7 H 10.0-14.5 % Platelet Count 528 H 476 H 130-400 10^3/uL Mean Platelet Volume 10.2 9.0 7.4-10.4 FL Neutrophils (%) (Auto) 84 H 81 H 42-75 % Lymphocytes (%) (Auto) 8 L 11 L 12-44 % Monocytes (%) (Auto) 7 7 0-12 % Eosinophils (%) (Auto) 0 1 0-10 % Basophils (%) (Auto) 0 1 0-10 % Neutrophils # (Auto) 9.2 H 6.5 1.8-7.8 X 10^3 Lymphocytes # (Auto) 0.9 L 0.9 L 1.0-4.0 X 10^3 Monocytes # (Auto) 0.8 0.5 0.0-1.0 X 10^3 Eosinophils # (Auto) 0.0 0.1 0.0-0.3 10^3/uL Basophils # (Auto) 0.0 0.0 0.0-0.1 10^3/uL Sodium Level 139 141 135-145 MMOL/L Potassium Level 5.0 4.5 3.6-5.0 MMOL/L Chloride Level 105 112 H 98-107 MMOL/L Carbon Dioxide Level 22 20 L 21-32 MMOL/L Anion Gap 12 9 5-14 MMOL/L Blood Urea Nitrogen 35 H 29 H 7-18 MG/DL Creatinine 1.09 0.84 0.60-1.30 MG/DL Estimat Glomerular Filtration Rate > 60 > 60 BUN/Creatinine Ratio 32 35 Glucose Level 131 H 98 70-105 MG/DL Calcium Level 10.6 H 9.5 8.5-10.1 MG/DL Total Bilirubin 0.6 0.6 0.1-1.0 MG/DL Aspartate Amino Transf (AST/SGOT) 53 H 33 5-34 U/L Alanine Aminotransferase (ALT/SGPT) 34 25 0-55 U/L Alkaline Phosphatase 278 H 219 H 40-136 U/L Total Protein 8.8 H 6.9 6.4-8.2 GM/DL Albumin 4.0 3.2 3.2-4.5 GM/DL TSH [place] Testing 3.37 0.35-4.94 UIU/ML Lactic Acid Level 0.98 0.50-2.00 MMOL/L Urine Color RED H Urine Clarity VERY CLOUDY H Urine pH 6.5 5-9 Urine Specific [place] 1.010 L 1.016-1.022 Urine Protein 3+ H NEGATIVE Urine Glucose (UA) NEGATIVE NEGATIVE Urine Ketones NEGATIVE NEGATIVE Urine Nitrite NEGATIVE NEGATIVE Urine Bilirubin NEGATIVE NEGATIVE Urine Urobilinogen NORMAL NORMAL MG/DL Urine Leukocyte Esterase 3+ H NEGATIVE Urine RBC (Auto) 5+ H NEGATIVE Urine RBC >100 H /HPF Urine WBC 5-10 H /HPF Urine Squamous Epithelial Cells RARE /HPF Urine Crystals NONE /LPF Urine Bacteria TRACE /HPF Urine Casts NONE /LPF Urine Mucus NEGATIVE /LPF Urine Culture Indicated YES Prothrombin Time 18.0 H 12.2-14.7 SEC INR Comment 1.5 H 0.8-1.4 Radiology Date of Exam: 12/04/17 FOOT, RIGHT, 3 VIEW Clinical indication: Patient with right foot injury. Probed to bone. Exam: X-ray of the right foot, 3 views. Comparison: None. Findings: There is diffuse osteopenia which limits evaluation of fine bony detail. There is a soft tissue defect involving the plantar aspect of the foot near the MTP level. There are hypertrophic spurs involving the mid foot and also seen posteriorly which limits evaluation for subtle fracture. There is no radiodense foreign object seen. There is a curvilinear area overlying the region of the first MTP joint and a fracture fragment cannot be completely excluded. There is hypertrophic calcaneal spur at the plantar attachment. Vascular calcifications are seen. Impression: 1: There is a curvilinear area of increased density seen overlying the first MTP joint region which is in the general area of the soft tissue defect involving the medial plantar aspect of the foot. A fracture in this region cannot be completely excluded. CT scan of the right foot would better evaluate. 2: There is no other concern for acute fracture or dislocation. There is no radiodense foreign object seen. 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 Physical Exam-([facility]) Physical Exam General Appearance: WD/WN, no apparent distress, thin HEENT: PERRL/EOMI Neck: non-tender, full range of motion, normal inspection Respiratory: chest non-tender, lungs clear, normal breath sounds, no respiratory distress, no accessory muscle use Cardiovascular: regular rate, rhythm, no edema, no murmur Peripheral Pulses: 1+ Femoral (R), 1+ Femoral (L); 0 Dorsalis Pedis (R), 0 Left Dors-Pedis (L) Gastrointestinal: normal bowel sounds, non tender, soft, no organomegaly Back: no CVA tenderness, no vertebral tenderness Extremities: non-tender, no pedal edema, no calf tenderness, slow capillary refill Neurologic/Psychiatric: solderer dipper II-XII nml as tested, alert, normal mood/affect, oriented x 3, sensory deficit (decrease senstation on feet bilaterally) Skin: other (ulcer located on right medial foot, necrotic with tunneling proximal) Lymphatic: no adenopathy Assessment/Plan Assessment/Plan Admission Status: Inpatient Order (span 2 midnights) Reason for Inpatient Admission: Requires IV antibiotics (1) Arterial insufficiency of lower extremity Status: Acute Assessment & Plan: - Dr Chapa following patient, arterial studies today with likely intervention (2) Open wound of right foot Status: Acute Assessment & Plan: - Dr Solares consulted and following along, patient will likely need surgical debridement - Vanc/Zosyn D2 - A1c pending (3) Microcytic anemia Status: Chronic Assessment & Plan: - Iron studies pending, will get Hemoccult study (4) Elevated LFTs Status: Acute Assessment & Plan: - Will follow as outpatient (5) Debility Status: Chronic Assessment & Plan: - Will likely need SNF placement after hospitalization for wound care and PT (6) Advanced age Status: Chronic XIN RAYGOZA MED STUDENT Dec 05, 2017 11:43 am FREDDY VARGAS MD Dec 05, 2017 5:17 pm
[2017-12-05] MEDS ORDERED: ACETAMINOPHEN 325 MG TABLET PO PRN (11:45)
[2017-12-05 12:00] VITALS: BP 162/82
--- NOTE | 2017-12-05 12:13 | Wound Care Assessment ---
Wound Care Assessment Date Seen by Provider: Dec 05, 2017 Time Seen by Provider: 11:30 Chief Complaint R foot ulcer. HPI The patient is a pleasant 87 year old male with a painful R medial foot ulcer, punched out, present for a month. There are no palpable pulses in the R foot. The wound has the appearance of an arterial lesion, arterial evaluation and consultation recommended. Smoking Status: Never a Smoker Recreational Drug Use: No Alcohol Use: Denies Use Review of Systems Pulmonary: No Dyspnea Cardiovascular: No: Chest Pain Exam Vital Signs Date Time Temp Pulse Resp B/P (MAP) Pulse Ox O2 Delivery O2 Flow Rate FiO2 12/05/17 07:54 97.0 79 18 140/83 (102) 95 Nasal Cannula 2.00 Capillary Refill : Cardiovascular: other (No palpable pedal pulses.) Skin: other (R maedial mid-foot -- 1.2 x .15 x 1.0 punched out with necrotic base, tunneling proximally and distally, with the overlying skin macerated and in places necrotic.) Results Laboratory Tests 12/04/17 20:40: White Blood Count 10.9, Red Blood Count 3.94L, Hemoglobin 9.8L, Hematocrit 31L, Mean Corpuscular Volume 78L, Mean Corpuscular Hemoglobin 25, Mean Corpuscular Hemoglobin Concent 32, Red Cell Distribution Width 19.6H, Platelet Count 528H, Mean Platelet Volume 10.2, Neutrophils (%) (Auto) 84H, Lymphocytes (%) (Auto) 8L , Monocytes (%) (Auto) 7, Eosinophils (%) (Auto) 0, Basophils (%) (Auto) 0, Neutrophils # (Auto) 9.2H, Lymphocytes # (Auto) 0.9L, Monocytes # (Auto) 0.8, Eosinophils # (Auto) 0.0, Basophils # (Auto) 0.0, Sodium Level 139, Potassium Level 5.0, Chloride Level 105, Carbon Dioxide Level 22, Anion Gap 12, Blood Urea Nitrogen 35H, Creatinine 1.09, Estimat Glomerular Filtration Rate > 60, BUN /Creatinine Ratio 32, Glucose Level 131H, Calcium Level 10.6H, Total Bilirubin 0.6, Aspartate Amino Transf (AST/SGOT) 53H, Alanine Aminotransferase (ALT/SGPT) 34, Alkaline Phosphatase 278H, Total Protein 8.8H, Albumin 4.0, TSH [place] Testing 3.37 7/18/18 20:50: Lactic Acid Level 0.98 12/05/17 02:30: Urine Color REDH, Urine Clarity VERY CLOUDYH, Urine pH 6.5, Urine Specific [place] 1.010L, Urine Protein 3+H, Urine Glucose (UA) NEGATIVE, Urine Ketones NEGATIVE, Urine Nitrite NEGATIVE, Urine Bilirubin NEGATIVE, Urine Urobilinogen NORMAL, Urine Leukocyte Esterase 3+H, Urine RBC (Auto) 5+H, Urine RBC >100H, Urine WBC 5-10H, Urine Squamous Epithelial Cells RARE, Urine Crystals NONE, Urine Bacteria TRACE, Urine Casts NONE, Urine Mucus NEGATIVE, Urine Culture Indicated YES 12/05/17 05:36: White Blood Count 8.0, Red Blood Count 3.49L, Hemoglobin 8.2L, Hematocrit 27L, Mean Corpuscular Volume 78L, Mean Corpuscular Hemoglobin 23L, Mean Corpuscular Hemoglobin Concent 30L, Red Cell Distribution Width 19.7H, Platelet Count 476H, Mean Platelet Volume 9.0, Neutrophils (%) (Auto) 81H, Lymphocytes (%) (Auto) 11L , Monocytes (%) (Auto) 7, Eosinophils (%) (Auto) 1, Basophils (%) (Auto) 1, Neutrophils # (Auto) 6.5, Lymphocytes # (Auto) 0.9L, Monocytes # (Auto) 0.5, Eosinophils # (Auto) 0.1, Basophils # (Auto) 0.0, Sodium Level 141, Potassium Level 4.5, Chloride Level 112H, Carbon Dioxide Level 20L, Anion Gap 9, Blood Urea Nitrogen 29H, Creatinine 0.84, Estimat Glomerular Filtration Rate > 60, BUN /Creatinine Ratio 35, Glucose Level 98, Calcium Level 9.5, Total Bilirubin 0.6, Aspartate Amino Transf (AST/SGOT) 33, Alanine Aminotransferase (ALT/SGPT) 25, Alkaline Phosphatase 219H, Total Protein 6.9, Albumin 3.2, Prothrombin Time 18.0H, INR Comment 1.5H Microbiology 12/05/17 Urine Culture - Preliminary, Resulted Sent To [facility] Microbiology 12/05/17 Urine Culture - Preliminary, Resulted Sent To [facility] Assessment/Plan/Dx 1. 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 2. Atherosclerotic peripheral vascular disease. Plan: Non-invasive arterial evaluation, pack with iodoform, vascular consultation. CHELSIE,NALLELY G MD Dec 05, 2017 12:13
--- NOTE | 2017-12-05 13:30 | Consultation-Cardiology ---
HPI-Cardiology Cardiology Consultation: Date of Consultation 12/05/17 Date of Admission Attending Physician Freddy Vargas MD Admitting Physician Jakob Su MD Consulting Physician Yadira CHAPA MD HPI: Time Seen by Provider: 12:30 Chief Complaint: Right lower extremity medial ulcer This is a 87-year-old gentleman with right foot medial ulcer. She denies history of diabetes or smoking. He does have an aortic valve replacement done in 2001. He denies any shortness of breath, chest pain. Review of Systems-Cardiology Review of Systems Constitutional: As described under HPI; No As described under HPI, No no symptoms reported, No chills, No fever, No lightheadedness Eyes: No As described under HPI, No no symptoms reported, No blindness, No blurred vision, No contact lenses, No drainage, No decreased acuity, No foreign body sensation, No pain, No vision change Ears/Nose/Throat: No As described under HPI, No no symptoms reported, No chronic hearing loss, No ear discharge, No ear pain, No nasal drainage, No ulcerations Respiratory: No no symptoms reported; As described under HPI; No As described under HPI, No cough, No orthopnea, No shortness of breath, No SOB with excertion Cardiovascular: No no symptoms reported; As described under HPI; No As described under HPI, No chest pain, No edema, No irregular heart rate, No lightheadedness, No palpitations Gastrointestinal: No no symptoms reported, No As described under HPI, No abdomen distended, No abdominal pain, No blood streaked bowels, No constipation , No diarrhea, No nausea, No vomiting, No stool coloration changes Genitourinary: No As described under HPI, No burning, No dysuria, No discharge , No frequency, No flank pain, No hematuria, No urgency Musculoskeletal: No no symptoms reported, No As describe under HPI, No back pain, No gout, No joint pain, No joint swelling, No muscle pain, No muscle stiffness, No neck pain, No other Skin: No rash, No skin related problems; ulcerations Psychiatric/Neurological: No anxiety, No depression, No seizure, No focal weakness, No syncope Hematologic: No bleeding abnormalities CXA-Nlxhcy-Mariht Hx Patient Social History Marrital Status: Alcohol Use: Denies Use Recreational Drug Use: No Smoking Status: Never a Smoker Recent Foreign Travel: No Recent Infectious Disease Expo: No Hospitalization with Isolation: Denies Physical Abuse Screen: No Sexual Abuse: No Past Medical History PMH As described under Assessment. Family Medical History Family History: Dysphasia FH: cancer 19 MOTHER FH: stomach cancer G8 SISTER FH: stroke G8 BROTHER Myocardial infarction 19 FATHER Allergies and Home Medications Allergies Coded Allergies: Penicillins (Unverified Allergy, Mild, 04/07/09) Home Medications Acetaminophen 325 Mg Tablet, 325 MG PO Q4H PRN for PAIN-MILD, (Reported) Aspirin 81 Mg Tablet.dr, 81 MG PO DAILY Prescribed by: FREDDY VARGAS on 12/06/17 143 Atorvastatin Calcium 80 Mg Tablet, 80 MG PO HS Prescribed by: FREDDY VARGAS on 12/06/17 143 Clopidogrel Bisulfate 75 Mg Tablet, 75 MG PO DAILY Prescribed by: FREDDY VARGAS on 12/06/17 143 Sulfamethoxazole/Trimethoprim 1 Each Tablet, 1 EACH PO BID Prescribed by: FREDDY VARGAS on 12/06/17 143 Patient Home Medication List Home Medication List Reviewed: Yes Physical Exam-Cardiology Physical Exam Vital Signs/I&O 12/06/17 12/06/17 12/06/17 08:00 11:40 14:55 Temp 97.8 97.2 Pulse 65 88 Resp 18 18 B/P (MAP) 158/87 (110) 160/79 (106) Pulse Ox 97 98 O2 Delivery Room Air Room Air 12/06/17 00:00 Intake Total 1120 ml Output Total 1046 ml Balance 74 ml Capillary Refill : Constitutional: AAO x 3 HEENT: No PERRL, No normal ENT inspection, No TMs normal, No pharynx normal, No scleral icterus (R), No scleral icterus (L), No pale conjunctivae (R), No pale conjunctivae (L), No photophobia, No TM abnormal (R), No TM abnormal (L), No pharyngeal erythema, No tonsillar exudate, No other, No discharge, No EOMI, No hearing is well preserved, No hard of hearing, No oral hygience is good, No ulceration, No xanthelasmas are seen Neck: No non-tender, No full range of motion, No supple, No normal inspection, No carotid bruit, No limited range of motion, No lymphadenopathy (R), No lymphadenopathy (L), No tender lateral, No tender midline, No thyromegaly, No other; carotid pulses are 2 + bilaterally; No with good upstrokes Respiratory: No accessory muscle use, No respiratory distress, No chest tender , No chest expansion is symmetric; chest is bilaterally symmetric; No lungs clear to percussion; lungs clear to auscultation; No crackles, No rhonchi, No rales, No stridor, No wheezing, No pleural rub, No other Cardiovascular: regular rate-rhythm; No irregularly irregular, No extra beats, No parasternal heave is noted, No JVD, No edema, No bradycardia, No tachycardia , No point of maximal impulse, No cardiac thrills are palpable; S1 and S2; No gallop/S3, No gallop/S4, No diastolic murmur, No systolic murmur, No friction rub, No click, No other Gastrointestinal: No tender, No soft, No round, No distended, No pulsatile mass , No organomegaly, No guarding, No rebound, No tenderness, No hernia, No mass, No audible bowel sounds, No abnormal bowel sounds, No abdominal bruits, No spleenomegaly, No other Rectal: deferred Extremities: No normal range of motion, No non-tender, No normal inspection, No pedal edema, No calf tenderness, No normal capillary refill, No pelvis stable , No calf tenderness, No inflammation, No pedal edema, No slow capillary refill , No swelling, No other, No abrasion, No clubbing, No cyanosis, No ecchymosis, No laceration, No no lower extremity edema bilateral, No significant edema, No tenderness; wound Neurologic/Psychiatric: no motor/sensory deficits, alert, normal mood/affect, oriented x 3, power is 5/5 both on sides Skin: No rash, No ulcerations Lymphatic: no adenopathy Data Review Labs Laboratory Tests 12/06/17 05:10: White Blood Count 8.2, Red Blood Count 3.76L, Hemoglobin 9.2L, Hematocrit 29L, Mean Corpuscular Volume 78L, Mean Corpuscular Hemoglobin 25, Mean Corpuscular Hemoglobin Concent 32, Red Cell Distribution Width 19.9H, Platelet Count 527H, Mean Platelet Volume 10.0, Neutrophils (%) (Auto) 79H, Lymphocytes (%) (Auto) 12 , Monocytes (%) (Auto) 7, Eosinophils (%) (Auto) 1, Basophils (%) (Auto) 1, Neutrophils # (Auto) 6.5, Lymphocytes # (Auto) 1.0, Monocytes # (Auto) 0.6, Eosinophils # (Auto) 0.1, Basophils # (Auto) 0.1, Prothrombin Time 16.9H, INR Comment 1.4, Sodium Level 138, Potassium Level 4.2, Chloride Level 109H, Carbon Dioxide Level 18L, Anion Gap 11, Blood Urea Nitrogen 22H, Creatinine 0.95, Estimat Glomerular Filtration Rate > 60, BUN/Creatinine Ratio 23, Glucose Level 95, Calcium Level 9.7, Iron Level 17L, Total Iron Binding Capacity 283, Unsaturated Iron Binding Capacity 266, Transferrin % Saturation 6L Microbiology 12/04/17 Blood Culture - Preliminary, Resulted No growth 12/05/17 Urine Culture - Final, Complete Sent To [facility] See Comments A/P-Cardiology Assessment/Admission Diagnosis Critical limb ischemia right lower extremity, right foot arterial ulcer, History of aortic valve replacement Plan Right lower extremity critical limb ischemia, arterial duplex shows possibility of at least moderate disease in the right SFA and possible disease below the knee. Will recommend peripheral angiography with left femoral access and possible intervention to right SFA/below the knee. Start aspirin/Plavix and high-dose statin. Discussed with Dr. Jauregui and Dr. Vargas. Valve replacement: We'll recommend an echocardiogram. Thank you for your consultation. Please call me if you have any questions. Alireza Chapa MD, FACP, FACC, FSCAI, FHRS, CCDS Interventional Cardiology Cardiac Electrophysiology Vascular Medicine and Endovascular Interventions Clinical Quality Measures DVT/VTE Risk/Contraindication: Risk Factor Score Per Nursin RFS Level Per Nursing on Admit: 3=High Yadira CHAPA MD Dec 05, 2017 13:30
--- NOTE | 2017-12-05 13:43 | Diagnostic Imaging Report ---
PROCEDURE: US Bilateral lower extremity arterial. TECHNIQUE: Multiple real-time grayscale images are obtained through both lower extremity arterial systems with color Doppler imaging and color Doppler spectral analysis. INDICATION: Right foot ulcer and peripheral arterial disease. Predominantly triphasic waveforms are identified in the common femoral and superficial femoral arteries. There appears to be monophasic waveforms from bilateral popliteals distally. No high-grade stenosis or occlusion is seen. There is moderate plaque identified in the proximal aspect of the right SFA but no significant velocity elevation is seen. IMPRESSION: Small vessel disease with monophasic flow below the knees. However, no high-grade stenosis or occlusion is detected. Dictated by: Dictated on workstation # [id number]
[2017-12-05 15:35] VITALS: BP 154/91
[2017-12-05] MEDS ORDERED: ASPIRIN E.C. 325 MG (ECOTRIN) TABLET PO ONE (16:15)
[2017-12-05] MEDS ORDERED: CLOPIDOGREL 300 MG (PLAVIX) TABLET PO ONE (16:15)
[2017-12-05 19:15] VITALS: BP 136/79
[2017-12-05] MEDS ORDERED: VANCOMYCIN 1 GM/NS 250 ML IVPB IV SCH ×2 (21:00)
[2017-12-05] MEDS ORDERED: ATORVASTATIN 80 MG (LIPITOR) TABLET PO SCH (21:00)
[2017-12-06] VITALS: BP 152/95
[2017-12-06] MEDS: PIPERACILLIN/TAZO 3.375 GM/D5W 100 ML IV SCH ×4 (03:09→10:33)
[2017-12-06 04:19] VITALS: BP 166/96
[2017-12-06 06:04] LABS: BASOPHILS # (AUTO) 0.1 10^3/uL (0.0-0.1); BASOPHILS % (AUTO) 1 % (0-10); EOSINOPHILS # (AUTO) 0.1 10^3/uL (0.0-0.3); EOSINOPHILS % (AUTO) 1 % (0-10); HEMATOCRIT 29 % (40-54); HEMOGLOBIN 9.2 G/DL (13.3-17.7); LYMPHOCYTES % (AUTO) 12 % (12-44); MEAN CORPUSCULAR HEMOGLOBIN 25 PG (25-34); MEAN CORPUSCULAR HGB CONC 32 G/DL (32-36); MEAN CORPUSCULAR VOLUME 78 FL (80-99); MONOCYTES # (AUTO) 0.6 X 10^3 (0.0-1.0); MONOCYTES % (AUTO) 7 % (0-12); NEUTROPHILS # (AUTO) 6.5 X 10^3 (1.8-7.8); NEUTROPHILS % (AUTO) 79 % (42-75); PLATELET COUNT 527 10^3/uL (130-400); RED BLOOD COUNT 3.76 10^6/uL (4.35-5.85); RED CELL DISTRIBUTION WIDTH 19.9 % (10.0-14.5); WHITE BLOOD COUNT 8.2 10^3/uL (4.3-11.0)
[2017-12-06 06:13] LABS: INR 1.4 (0.8-1.4); PROTHROMBIN TIME PATIENT 16.9 SEC (12.2-14.7)
[2017-12-06 06:26] LABS: BUN/CREATININE RATIO 23; CALCIUM 9.7 MG/DL (8.5-10.1); CARBON DIOXIDE 18 MMOL/L (21-32); CHLORIDE 109 MMOL/L (98-107); CREATININE SERUM 0.95 MG/DL (0.60-1.30); GFR ESTIMATED > 60; GLUCOSE 95 MG/DL (70-105); POTASSIUM 4.2 MMOL/L (3.6-5.0); SODIUM 138 MMOL/L (135-145)
[2017-12-06 08:00] VITALS: BP 158/87
[2017-12-06] MEDS ORDERED: ASPIRIN E.C. 81 MG (ECOTRIN) TAB PO SCH (09:00)
[2017-12-06] MEDS ORDERED: CLOPIDOGREL 75 MG (PLAVIX) TABLET PO SCH (09:00)
[2017-12-06] MEDS ORDERED: LIDOCAINE 1% INJ 20 ML 20 ML VIAL ONE (10:08)
[2017-12-06] MEDS ORDERED: NS IV 1000 ML 0 ML ONE (10:08)
[2017-12-06] MEDS ORDERED: HEParin (CATH LAB) 0 ML IV ONE (10:09)
--- NOTE | 2017-12-06 10:25 | Cardiology Progress Note ---
Cardiology SOAP Progress Note Subjective: No cardiac symptoms Objective: I&O/Vital Signs 12/06/17 12/06/17 12/06/17 08:00 11:40 14:55 Temp 97.8 97.2 Pulse 65 88 Resp 18 18 B/P (MAP) 158/87 (110) 160/79 (106) Pulse Ox 97 98 O2 Delivery Room Air Room Air 12/06/17 00:00 Intake Total 1120 ml Output Total 1046 ml Balance 74 ml Weight (Pounds): 142 Weight (Ounces): 11.2 Weight (Calculated Kilograms): 64.117783 Constitutional: AAO x 3 Respiratory: No accessory muscle use, No respiratory distress, No chest tender , No chest expansion is symmetric; chest is bilaterally symmetric; No lungs clear to percussion; lungs clear to auscultation; No crackles, No rhonchi, No rales, No stridor, No wheezing, No pleural rub, No other Cardiovascular: regular rate-rhythm; No irregularly irregular, No extra beats, No parasternal heave is noted, No JVD, No edema, No bradycardia, No tachycardia , No point of maximal impulse, No cardiac thrills are palpable; S1 and S2; No gallop/S3, No gallop/S4, No diastolic murmur, No systolic murmur, No friction rub, No click, No other Gastrointestional: No tender, No soft, No round, No distended, No pulsatile mass, No organomegaly, No guarding, No rebound, No tenderness, No hernia, No mass, No audible bowel sounds, No abnormal bowel sounds, No abdominal bruits, No spleenomegaly, No other Extremities: No normal range of motion, No non-tender, No normal inspection, No pedal edema, No calf tenderness, No normal capillary refill, No pelvis stable , No calf tenderness, No inflammation, No pedal edema, No slow capillary refill , No swelling, No other, No abrasion, No clubbing, No cyanosis, No ecchymosis, No laceration, No no lower extremity edema bilateral, No significant edema, No tenderness; wound Neurologic/Psychiatric: no motor/sensory deficits, alert, normal mood/affect, oriented x 3 Skin: No normal color, No warm/dry, No cyanosis, No cool, No diaphoresis, No damp, No ecchymosis, No jaundice, No mottled, No pallor, No rash, No tattoos/ piercings, No ulcerations, No rash on exposed areas, No ulcerations on exposed areas, No other Results/Procedures: Labs Laboratory Tests 12/06/17 05:10: White Blood Count 8.2, Red Blood Count 3.76L, Hemoglobin 9.2L, Hematocrit 29L, Mean Corpuscular Volume 78L, Mean Corpuscular Hemoglobin 25, Mean Corpuscular Hemoglobin Concent 32, Red Cell Distribution Width 19.9H, Platelet Count 527H, Mean Platelet Volume 10.0, Neutrophils (%) (Auto) 79H, Lymphocytes (%) (Auto) 12 , Monocytes (%) (Auto) 7, Eosinophils (%) (Auto) 1, Basophils (%) (Auto) 1, Neutrophils # (Auto) 6.5, Lymphocytes # (Auto) 1.0, Monocytes # (Auto) 0.6, Eosinophils # (Auto) 0.1, Basophils # (Auto) 0.1, Prothrombin Time 16.9H, INR Comment 1.4, Sodium Level 138, Potassium Level 4.2, Chloride Level 109H, Carbon Dioxide Level 18L, Anion Gap 11, Blood Urea Nitrogen 22H, Creatinine 0.95, Estimat Glomerular Filtration Rate > 60, BUN/Creatinine Ratio 23, Glucose Level 95, Calcium Level 9.7, Iron Level 17L, Total Iron Binding Capacity 283, Unsaturated Iron Binding Capacity 266, Transferrin % Saturation 6L Microbiology 12/04/17 Blood Culture - Preliminary, Resulted No growth 12/05/17 Urine Culture - Final, Complete Sent To [facility] See Comments A/P: Assessment/Dx: Critical limb ischemia right lower extremity, right foot arterial ulcer, Cardiomyopathy, Valvular heart disease, Plan: Severe PAD: With nonhealing ulcer on the right foot. Patient was started on aspirin, Plavix and statin therapy. Patient gave consent yesterday for peripheral angiography today. However when my staff went to get the patient for angiogram and possible intervention he refused. I went and spoke to him again and he continued to refuse and understands all the risks. I also spoke to the family in the room. Echocardiogram showed cardiomyopathy and valvular heart disease. Aortic valve prosthesis did not show any significant gradient. Thank you for your consultation. Please call me if you have any questions. Alireza Chapa MD, FACP, FACC, FSCAI, FHRS, CCDS Interventional Cardiology Cardiac Electrophysiology Vascular Medicine and Endovascular Interventions Focused Exam Lactate Level 12/04/17 20:50: Lactic Acid Level 0.98 Yadira CHAPA MD Dec 06, 2017 10:25
--- NOTE | 2017-12-06 10:39 | Physical Therapy Progress Note ---
Therapy Progress Note Patient adamantly declined PT stating, "I'm not doing anything until I talk to my son." RN aware. Patient to have procedure this p.m. 1 ref JOSE LUIS SWANN PT Dec 06, 2017 10:39
[2017-12-06] MEDS ORDERED: MIDAZOLAM 5 MG/5 ML (VERSED) VIAL ONE (11:35)
[2017-12-06] MEDS ORDERED: fentaNYL INJECTION 100 MCG/2 ML AMP ONE (11:35)
[2017-12-06 11:40] VITALS: BP 160/79
--- NOTE | 2017-12-06 14:31 | Discharge Summary ---
Diagnosis/Chief Complaint Date of Admission Dec 04, 2017 at 8:18 pm Date of Discharge 12/06/2017 Admission Diagnosis Admission Diagnosis Arterial Insufficiency of Right LE Right foot wound Microcytic Anemia Elevated LFTs Debility Advanced Age Discharge Diagnosis See Above Chief Complaint/HPI Chief Complaint/HPI Reviewed History with patient and agree with student's documentation See H&P Discharge Summary-Simple/Stand Procedures Echo ABIs Consultations Dr Chapa, Cardiology Dr Solares, Advanced Wound Care Discharge Physical Examination Allergies: Coded Allergies: Penicillins (Unverified Allergy, Mild, 04/07/09) Vitals & I&Os Vital Sign - Last 12Hours Date Time Temp Pulse Resp B/P (MAP) Pulse Ox O2 Delivery O2 Flow Rate FiO2 12/06/17 11:40 97.2 88 18 160/79 (106) 98 Room Air 12/05/17 12:00 2.00 Intake and Output 12/06/17 00:00 Intake Total 1120 ml Output Total 1046 ml Balance 74 ml General Appearance: Alert, Oriented X3, Cooperative, No Acute Distress HEENT: Mucous Memb Moist/Lytle Respiratory: Clear to Auscultation, Normal Air Movement Cardiovascular: Regular Rate, No Murmurs Abdominal: Normal Bowel Sounds, Soft, No Tenderness, No Hepatosplenomegaly, No Masses Extremities: Other (Open Right foot wound, No pedal pulses bilaterally, + purulent drainage from wound with tracking proximal) Neuro: Normal Speech, Cranial Nerves 3-12 NL Psych/Mental Status: Mental Status NL, Mood NL Hospital Course See final discharge diagnosis. Radiology Reviewed Date of Exam: 12/04/17 FOOT, RIGHT, 3 VIEW Clinical indication: Patient with right foot injury. Probed to bone. Exam: X-ray of the right foot, 3 views. Comparison: None. Findings: There is diffuse osteopenia which limits evaluation of fine bony detail. There is a soft tissue defect involving the plantar aspect of the foot near the MTP level. There are hypertrophic spurs involving the mid foot and also seen posteriorly which limits evaluation for subtle fracture. There is no radiodense foreign object seen. There is a curvilinear area overlying the region of the first MTP joint and a fracture fragment cannot be completely excluded. There is hypertrophic calcaneal spur at the plantar attachment. Vascular calcifications are seen. Impression: 1: There is a curvilinear area of increased density seen overlying the first MTP joint region which is in the general area of the soft tissue defect involving the medial plantar aspect of the foot. A fracture in this region cannot be completely excluded. CT scan of the right foot would better evaluate. 2: There is no other concern for acute fracture or dislocation. There is no radiodense foreign object seen. 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 Discussion & Recommendations 87 yo M that was directly admitted from clinic with end stage wound of right foot Arterial Insufficiency of Right LE: Wound care and cardiology was consulted to evaluate blood flow to extremity for wound healing potential. Patient was found to have severe arterial disease that would greatly hinder wound healing potential. Patient was counselled about the need for catheter with possible balloon vs stent placement. Patient decided that he wanted to return home without further studies on hospice. Hospice was consulted and met patient at home upon discharge. Patient was sent home with a course of antibiotics and wound care for comfort. Right foot wound: See Above Microcytic Anemia: Patient desired hospice care Elevated LFTs Debility Advanced Age Discharge Condition at discharge Guarded Instructions to patient/family Please see electronic discharge instructions given to patient. Discharge Medications Reviewed and agree with Discharge Medication list on patient's Discharge Instruction sheet Clinical Quality Measures DVT/VTE Risk/Contraindication: Risk Factor Score Per Nursin RFS Level Per Nursing on Admit: 3=High Copy Copies To 1: FREDDY VARGAS MD, HOLLY R MD Dec 06, 2017 14:31
[2017-12-06] MEDS ORDERED: CLOP75TA28 PO (14:34)
[2017-12-06] MEDS ORDERED: SULF1TAB35 PO (14:34)
[2017-12-06] MEDS ORDERED: ATOR80TA76 PO (14:34)
[2017-12-06] MEDS ORDERED: ASPI-983 PO (14:34)
--- NOTE | 2017-12-06 14:38 | Discharge Instructions ---
Discharge [facility] Discharge Medications New, Converted or Re-Newed RX: Transmitted to Pharmacy ([facility]) New Medications: Sulfamethoxazole/Trimethoprim (Bactrim Ds Tablet) 1 Each Tablet 1 EACH PO BID for 10 Days, #20 TAB Aspirin (Aspirin EC) 81 Mg Tablet.dr 81 MG PO DAILY, #30 TAB Atorvastatin Calcium (Atorvastatin Calcium) 80 Mg Tablet 80 MG PO HS, #30 TAB Clopidogrel Bisulfate (Clopidogrel) 75 Mg Tablet 75 MG PO DAILY, #30 TAB Continued Medications: Acetaminophen (Acetaminophen) 325 Mg Tablet 325 MG PO Q4H PRN for PAIN-MILD, TAB Discontinued Medications: Aspirin (Aspirin) 325 Mg Tablet 325 MG PO Q4H PRN for PAIN-MILD, TAB Patient Instructions Goal/Follow Up Appt: You have a follow up with Dr White on December 12 @ 1120 for hospital follow up Patient Instructions: - Review Medications as we are trying to maximize medical management of arterial disease - Make sure you start your antiboitic tomorrow as you have had your IV antibiotics for today - [facility] will meet you at your house to discuss options Activity & Diet Discharge Diet: No Restrictions Activity as Tolerated: Yes Orders-Post D/C & Referrals - [facility] Pneu Vac Indicated: Yes Copy Copies To 1: MIGUELINA HOFFMAN MD, HOLLY R MD Dec 06, 2017 2:37 pm
[2017-12-06] MEDS ORDERED: TROUGH ORDER-PHARMACY XX ONE (20:00)
== END 2017-12-06 14:55 | disposition hospice, home (50) | DRG 300 ==
LOC: 4TH 20:18
PROVIDERS: ADMIT Family Medicine; ATTEND Family Medicine
DX: I70.234 Atherosclerosis of native arteries of right leg with ulceration of heel and midfoot (principal); L97.519 Non-pressure chronic ulcer of other part of right foot with unspecified severity; I42.9 Cardiomyopathy, unspecified; I08.1 Rheumatic disorders of both mitral and tricuspid valves; D50.9 Iron deficiency anemia, unspecified; R79.89 Other specified abnormal findings of blood chemistry; R54 Age-related physical debility; Z95.2 Presence of prosthetic heart valve; Z79.82 Long term (current) use of aspirin
CPT/HCPCS: 36415; 73630; 80048; 80053; 81000; 82728; 83036; 83540; 83605; 84443; 85025; 85610; 87040; 87088; 93306; 93925